=== PATIENT | male | born 1995 | race Caucasian/White ===

== ENCOUNTER 2020-07-15 12:34 | Emergency (ER) | payer OTHER ==
[~2020-07-15] VITALS: Ht 175.3 cm; Wt 104.3 kg
[2020-07-15] MEDS ORDERED: RISPERDAL (12:42)
--- NOTE | 2020-07-15 12:44 | NUR ---
Pt is being interviewed by LISET.
--- NOTE | 2020-07-15 12:47 | NUR ---
Dr Arreguin at the bedside for MSE.
--- NOTE | 2020-07-15 12:56 | NUR ---
[employer] officer Garret placed pt on 5150 hold for DTS,and DTO.
[2020-07-15 12:59] LABS: BASOPHILS % (AUTO) 0.4 % (0.0-2.0); EOSINOPHILS # (AUTO) 0.1 K/uL (0.0-0.7); EOSINOPHILS % (AUTO) 1.2 % (0.0-7.0); HEMATOCRIT 44.6 % (36.7-47.1); HEMOGLOBIN 15.1 g/dL (12.5-16.3); LYMPHOCYTES # (AUTO) 1.7 K/uL (20.0-40.0); LYMPHOCYTES % (AUTO) 18.6 % (20.5-51.5); MEAN CORPUSCULAR HGB CONC 34 g/dL (32.5-36.3); MEAN CORPUSCULAR VOLUME 85.8 fL (73.0-96.2); MONOCYTES # (AUTO) 0.7 K/uL (2.0-10.0); MONOCYTES % (AUTO) 7.5 % (0.0-11.0); NEUTROPHILS # (AUTO) 6.8 K/uL (1.8-8.9); NEUTROPHILS % (AUTO) 72.3 % (38.5-71.5); PLATELET COUNT (AUTO) 313 K/uL (152-348); WHITE BLOOD COUNT (AUTO) 9.3 K/uL (3.6-10.2)
[2020-07-15 13:05] LABS: CARBON DIOXIDE 23 mmol/L (21-32); CHLORIDE 104 mmol/L (98-107); CREATININE 1.1 mg/dL (0.6-1.3); GLUCOSE 105 mg/dL (74-106); POTASSIUM 3.5 mmol/L (3.5-5.1); UREA NITROGEN, BLOOD 19 mg/dL (7-18)
[2020-07-15 13:11] LABS: ALANINE AMINOTRANSFERASE 30 U/L (16-63); ALKALINE PHOSPHATASE 92 U/L (50-136); ASPARTATE AMINOTRANSFERASE 14 U/L (15-37); BILIRUBIN,DIRECT 0.1 mg/dL (0.0-0.2); BILIRUBIN,TOTAL 0.5 mg/dL (0.2-1.0); TOTAL PROTEIN, SERUM 7.7 g/dL (6.4-8.2)
[2020-07-15 13:12] LABS: ACETAMINOPHEN < 2.0 ug/mL (10-30); ETHANOL < 3 MG/DL (0-0)
--- NOTE | 2020-07-15 13:24 | NUR ---
Pt attempted to leave stating, He is [place] citizen and has rights. Explain to Pt that he is on 5150 hold and can't leave, but not helpful. Called sarah العراقي.
[2020-07-15] MEDS ORDERED: ZIPRASIDONE MESYLATE 20 MG VIAL IM ONE ×2 (13:30→13:35)
[2020-07-15] MEDS ORDERED: LORAZEPAM 2 MG/1 ML VIAL IM ONE (13:30)
[2020-07-15] MEDS ORDERED: LORAZEPAM 2 MG/1 ML VIAL ONE (13:35)
--- NOTE | 2020-07-15 13:45 | NUR ---
Pt standing by the doctor and argueing w/ security officers.
--- NOTE | 2020-07-15 14:15 | NUR ---
Pt appears tired and sitting on the bed. Security officers at the bedside for safety.
[2020-07-15 14:25] LABS: *BILIRUBIN,URIN NEGATIVE (NEGATIVE); *BLOOD, URINE NEGATIVE (NEGATIVE); *CLARITY,URINE CLEAR (CLEAR); *COLOR,URINE YELLOW (YELLOW); *KETONES,URINE NEGATIVE (NEGATIVE); LEUKOCYTE ESTERASE ,URINE NEGATIVE (NEGATIVE); NITRITE, URINE NEGATIVE (NEGATIVE); UGLUCOSE NEGATIVE (NEGATIVE)
--- NOTE | 2020-07-15 14:35 | NUR ---
Patient is resting comfortably in bed with eyes closed, NAD noted.
[2020-07-15 14:36] LABS: *AMPHETAMINE, URINE NEGATIVE (NEGATIVE); *CANNABINOID, URINE NEGATIVE (NEGATIVE); *COCCAINE, URINE NEGATIVE (NEGATIVE); *OPIATE, URINE NEGATIVE (NEGATIVE); *PHENCYCLIDINE SCREEN,URINE NEGATIVE (NEGATIVE)
--- NOTE | 2020-07-15 14:57 | NUR ---
Gabrielle Valadez LCSW evaluated the pt and faxed info to [facility] [place] for possible admission.
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
--- NOTE | 2020-07-15 15:45 | NUR ---
Received telephone call from Aniceto from [facility] who stated patient has been accepted by Dr. Felix, patient will be going to room 100D, for report.
--- NOTE | 2020-07-15 15:56 | NUR ---
Called [facility] for transport to [facility], eta 1700.
--- NOTE | 2020-07-15 16:56 | NUR ---
Report given to faith at [facility]. Report also provided to transfering EMT's. Pt left ER in stable condition, all belongings sent w/ pt.
== END 2020-07-15 17:30 ==
LOC: ER 12:34
DX: F23 Brief psychotic disorder (principal); Z20.822 Contact with and (suspected) exposure to COVID-19; Z88.8 Allergy status to other drugs, medicaments and biological substances; Z86.59 Personal history of other mental and behavioral disorders
CPT/HCPCS: 36415; 80048; 80076; 80299; 80307; 80320; 81003; 85025; 87426; 96372; 99285; J2060; J3486; U0003; A4663; G0480

== ENCOUNTER 2022-04-30 14:11 | Emergency (ER) | payer OTHER ==
[~2022-04-30] VITALS: Ht 182.9 cm; Wt 85.7 kg
[~2022-04-30 14:11] MED LIST: RISPERDAL
[2022-04-30] MEDS ORDERED: LIDOCAINE 5% PATCH TD ONE ×2 (15:15→15:22)
[2022-04-30] MEDS ORDERED: IBUPROFEN 600 MG TABLET PO ONE (15:15)
[2022-04-30] MEDS ORDERED: IBUPROFEN 600 MG TABLET ONE (15:23)
--- NOTE | 2022-04-30 15:26 | NUR ---
1st contact with patient: AOx4, patient refused po MD Nita notified.
--- NOTE | 2022-04-30 15:58 | NUR ---
PT WAS EVALUATED BY DR OH. PT WAS D/C'd TO HOME. D/C INSTRUCTIONS GIVEN TO THE PT BY DR OH.
[2022-04-30 16:00] VITALS: BP 139/72
== END 2022-04-30 16:03 | disposition home or self-care (01) ==
LOC: ER 14:11
DX: T14.8XXA Other injury of unspecified body region, initial encounter (principal); W54.0XXA Bitten by dog, initial encounter; Y92.89 Other specified places as the place of occurrence of the external cause; M62.838 Other muscle spasm; M54.2 Cervicalgia; V49.9XXA Car occupant (driver) (passenger) injured in unspecified traffic accident, initial encounter; Y92.410 Unspecified street and highway as the place of occurrence of the external cause; F20.9 Schizophrenia, unspecified
CPT/HCPCS: 71045; A4663